=== PATIENT | male | born 1940 | race Caucasian/White ===

== ENCOUNTER 2023-03-03 05:55 | Day surgery (SDC) | payer OTHER ==
[~2023-03-03] VITALS: Ht 152.4 cm; Wt 63.6 kg
[2023-03-03] MEDS ORDERED: SODIUM CHLORIDE 0.9% 1,000 ML IV ONE (07:00)
[2023-03-03] MEDS ORDERED: CALC-26 PO (07:25)
[2023-03-03] MEDS ORDERED: IPRA3AMP24 NEB (07:25)
[2023-03-03] MEDS ORDERED: ALEN70TA80 PO (07:25)
[2023-03-03] MEDS ORDERED: IPRA4AER IH (07:25)
[2023-03-03] MEDS ORDERED: FERR325T27 PO (07:25)
[2023-03-03] MEDS ORDERED: TAMS-13 PO (07:25)
[2023-03-03] MEDS ORDERED: FLUT1BLS15 IH (07:25)
[2023-03-03] MEDS ORDERED: MONT-40 PO (07:25)
[2023-03-03] MEDS ORDERED: SODIUM CHLORIDE 0.9% 1,000 ML ONE (07:39)
[2023-03-03] MEDS ORDERED: FentaNYL CITRATE PF 100 MCG/2 ML VIAL ONE (08:02)
[2023-03-03] MEDS ORDERED: MIDAZOLAM HCL 2 MG/2 ML VIAL ONE (08:02)
[2023-03-03] MEDS ORDERED: MethylPREDNISolone SOD SUCC 125 MG/2 ML VIAL ONE (09:28)
[2023-03-03] MEDS ORDERED: MethylPREDNISolone SOD SUCC 125 MG/2 ML VIAL IVP ONE (09:30)
[2023-03-03] MEDS ORDERED: LIDOCAINE 2% 11 ML JELLY TP ONE (12:00)
[2023-03-03] MEDS ORDERED: LIDOCAINE 4% 50 ML SOLUTION TP ONE (12:00)
[2023-03-03] MEDS ORDERED: BENZOCAINE 20% 50 MCG/SPRAY 57 GM TP ONE (12:00)
[2023-03-03] MEDS ORDERED: ALBUTEROL SULFATE 2.5 MG/0.5 ML NEB SOLUTION NEB ONE (12:00)
== END 2023-03-03 10:50 | disposition home or self-care (01) ==
LOC: SURGERY 05:55
PROVIDERS: ATTEND Internal Medicine Critical Care Medicine
DX: R05.3 Chronic cough (principal); J98.09 Other diseases of bronchus, not elsewhere classified; J98.8 Other specified respiratory disorders; R91.1 Solitary pulmonary nodule
CPT/HCPCS: 31623; 88112; 87206; 87101; 87220; 87070; 31624; 94640; 71045; 87015; J3010; J2250; J2930; Q9967; J7030; J7613; Z7610